=== PATIENT | male | born 1960 | race African-American/Black ===

== ENCOUNTER 2018-01-06 19:03 | Inpatient (IN) ==
[2018-01-06] MEDS ORDERED: MORPHINE 2 MG/1 ML SYRINGE IV STA (19:31)
[2018-01-06] MEDS ORDERED: MORPHINE 2 MG/1 ML SYRINGE ONE (19:36)
[2018-01-06] MEDS ORDERED: ONDANSETRON 4 MG/2 ML VIAL IV STA (19:38)
[2018-01-06] MEDS ORDERED: ONDANSETRON 4 MG/2 ML VIAL ONE (19:38)
[2018-01-06 19:50] LABS: Basophils % 0.3 % (0.0-0.8); Eosinophils # 0.1 10*3/uL (0.0-0.87); Eosinophils % 1.1 % (0.00-10.9); Hematocrit 42.5 VOL% (42.0-52.0); Hemoglobin 13.8 GM/DL (14.0-18.0); Immature Granulocytes % 0.2 %; Immature Granulocytes Absolute 0.02 #; Lymphocytes # 2.2 10*3/uL (1.4-4.0); Mean Corpuscular HGB Conc 32.5 GM/DL (32-36); Mean Corpuscular Hemoglobin 26 PG (27-34); Mean Corpuscular Volume 79.9 FL (87-102); Monocytes # 0.7 10*3/uL (0.11-0.8); Monocytes % 7.7 % (1.7-12.7); Neutrophils % 66.7 % (38.7-73.9); Platelet Count 173 T/CUMM (130-400); Red Blood Count 5.32 MC/CUMM (3.8-5.5); Red Cell Distribution Width 16.8 % (9.3-17.3)
[2018-01-06 20:13] LABS: Albumin 3.6 G/DL (3.4-5.0); Bilirubin,Total 0.5 MG/DL (0.2-1.0); Calcium 9.5 MG/DL (8.5-10.1); Osmolality,Calculated 285.8 MOS/KG (273-304); Potassium 4.1 MMOL/L (3.5-5.1); Total Protein 7.2 G/DL (6.4-8.3)
[2018-01-06] MEDS ORDERED: cloNIDine 0.1 MG TABLET PO STA (21:15)
[2018-01-06] MEDS ORDERED: cloNIDine 0.1 MG TABLET ONE (21:17)
[2018-01-06] MEDS ORDERED: ENOXAPARIN 40 MG/0.4 ML SYRINGE SUBCUT STA (21:47)
[2018-01-06] MEDS ORDERED: ENOXAPARIN 40 MG/0.4 ML SYRINGE ONE (21:59)
[2018-01-07] MEDS ORDERED: GLUCAGON 1 MG VIAL IM PRN ×2 (00:25→13:30)
[2018-01-07] MEDS ORDERED: DEXTROSE 50% 25 GM/50 ML VIAL IV PRN ×2 (00:25→13:30)
[2018-01-07] MEDS ORDERED: SODIUM CHLORIDE 0.9% 1,000 ML IV SCH (00:25)
[2018-01-07] MEDS: hydrALAZINE 20 MG/1 ML VIAL IV PRN (01:20)
[2018-01-07] MEDS: MORPHINE 2 MG/1 ML SYRINGE IV PRN ×3 (01:23→21:39)
[2018-01-07] MEDS ORDERED: ALPRAZolam 0.5 MG TABLET PO ONE (03:27)
[2018-01-07] MEDS ORDERED: metFORMIN 500 MG TABLET PO SCH (08:00)
[2018-01-07] MEDS ORDERED: diphenhydrAMINE CAP 25 MG CAPSULE PO PRN (08:18)
[2018-01-07] MEDS ORDERED: ALUMINUM/MAGNES/SIMETH MAX STR 30 ML UDCUP PO PRN (08:18)
[2018-01-07] MEDS ORDERED: MYLANTA/LIDO VISC 2:1 300 ML BOTTLE SWISH/SWAL PRN (08:18)
[2018-01-07] MEDS ORDERED: guaiFENesin 200 MG/10 ML UDCUP PO PRN (08:18)
[2018-01-07] MEDS ORDERED: ACETAMINOPHEN 325 MG TABLET PO PRN (08:18)
[2018-01-07] MEDS ORDERED: chlorproMAZINE 25 MG TABLET PO PRN (08:18)
[2018-01-07] MEDS ORDERED: chlorproMAZINE INJ 50 MG in SODIUM CHLORIDE 0.9% 100 ML IV PRN (08:18)
[2018-01-07] MEDS ORDERED: chlorproMAZINE INJ 25 MG in SODIUM CHLORIDE 0.9% 100 ML IV PRN (08:18)
[2018-01-07] MEDS ORDERED: MAGNESIUM HYDROXIDE SUSP 30 ML UDCUP PO PRN (08:18)
[2018-01-07] MEDS ORDERED: BENZTROPINE 2 MG/2 ML AMP IV PRN (08:18)
[2018-01-07] MEDS ORDERED: ALPRAZolam 0.25 MG TABLET PO PRN (08:18)
[2018-01-07] MEDS ORDERED: TEMAZEPAM 7.5 MG CAPSULE PO PRN (08:18)
[2018-01-07] MEDS ORDERED: LOPERAMIDE 2 MG CAPSULE PO PRN ×2 (08:18)
[2018-01-07] MEDS ORDERED: LACTULOSE 20 GM/30 ML UDCUP PO PRN (08:18)
[2018-01-07] MEDS ORDERED: traMADol 50 MG TABLET PO PRN (08:18)
[2018-01-07] MEDS ORDERED: MYLANTA/LIDO VISC 2:1 300 ML BOTTLE SWISH/SPIT PRN (08:18)
[2018-01-07] MEDS ORDERED: PROMETHAZINE INJ 25 MG in SODIUM CHLORIDE 0.9% 50 ML IV PRN (08:18)
[2018-01-07] MEDS: hydroCHLOROthiazide 25 MG TABLET PO SCH (08:33)
[2018-01-07] MEDS: glipiZIDE 10 MG TABLET PO SCH (08:33)
[2018-01-07] MEDS: DOCUSATE SODIUM 100 MG CAPSULE PO SCH ×2 (08:34→21:38)
[2018-01-07] MEDS: sitaGLIPtin 25 MG TABLET PO SCH ×2 (08:34→17:00)
[2018-01-07] MEDS: CETIRIZINE 10 MG TABLET PO SCH (08:34)
[2018-01-07] MEDS: amLODIPine 10 MG TABLET PO SCH (08:34)
[2018-01-07] MEDS: SIMVASTATIN 20 MG TABLET PO SCH (08:34)
[2018-01-07] MEDS: SERTRALINE 100 MG TABLET PO SCH (08:34)
[2018-01-07] MEDS: PANTOPRAZOLE 40 MG TABLET PO SCH (08:35)
[2018-01-07] MEDS: INSULIN REGULAR 100 UNIT/ML SUBCUT SCH ×4 (08:40→21:40)
[2018-01-07] MEDS: cloNIDine 0.1 MG TABLET PO SCH ×2 (08:42→21:38)
[2018-01-07] MEDS ORDERED: ENOXAPARIN 100 MG/ML SYRINGE SUBCUT SCH (09:00)
[2018-01-07] MEDS ORDERED: LISINOPRIL 20 MG TABLET PO SCH (09:00)
[2018-01-07] MEDS: ONDANSETRON 4 MG/2 ML VIAL IV PRN ×2 (12:13→21:39)
[2018-01-07] MEDS ORDERED: RIVAROXABAN 20 MG TABLET PO SCH (18:40)
[2018-01-07] MEDS ORDERED: INSULIN GLARGINE 100 UNIT/ML SUBCUT SCH (21:00)
[2018-01-08] MEDS: hydrALAZINE 20 MG/1 ML VIAL IV PRN (04:25)
[2018-01-08] MEDS: INSULIN REGULAR 100 UNIT/ML SUBCUT SCH ×2 (08:36→12:02)
[2018-01-08] MEDS: SERTRALINE 100 MG TABLET PO SCH (08:37)
[2018-01-08] MEDS: PANTOPRAZOLE 40 MG TABLET PO SCH (08:37)
[2018-01-08] MEDS: glipiZIDE 10 MG TABLET PO SCH (08:37)
[2018-01-08] MEDS: cloNIDine 0.1 MG TABLET PO SCH (08:37)
[2018-01-08] MEDS: amLODIPine 10 MG TABLET PO SCH (08:37)
[2018-01-08] MEDS: CETIRIZINE 10 MG TABLET PO SCH (08:37)
[2018-01-08] MEDS: sitaGLIPtin 25 MG TABLET PO SCH (08:37)
[2018-01-08] MEDS: hydroCHLOROthiazide 25 MG TABLET PO SCH (08:37)
[2018-01-08] MEDS: SIMVASTATIN 20 MG TABLET PO SCH (08:38)
[2018-01-08] MEDS ORDERED: LISINOPRIL 20 MG TABLET PO SCH (09:00)
[2018-01-08] MEDS: DOCUSATE SODIUM 100 MG CAPSULE PO SCH (10:03)
[2018-01-08 12:18] VITALS: BP 132/85
[2018-01-08] MEDS ORDERED: HEPARIN LOCK FLUSH 500 UNIT/5 ML SYRINGE IV PRN (12:42)
== END 2018-01-08 14:05 | disposition home or self-care (01) | DRG 554 ==
LOC: N.ED 19:03 → SUATTDRO 23:10 → N.EDINP 23:10 → N.4E 01-07 00:19
PROVIDERS: ADMIT Internal Medicine; ATTEND Internal Medicine

== ENCOUNTER 2019-05-24 14:45 | Inpatient (IN) ==
[2019-05-24] MEDS ORDERED: DEXTROSE 50% 25 GM/50 ML VIAL IV PRN (17:22)
[2019-05-24] MEDS ORDERED: GLUCAGON 1 MG VIAL IM PRN (17:22)
[2019-05-24] MEDS ORDERED: ACETAMINOPHEN 325 MG TABLET PO PRN (17:22)
[2019-05-24] MEDS ORDERED: ENOXAPARIN 30 MG/0.3 ML SYRINGE SUBCUT SCH (17:30)
[2019-05-24] MEDS ORDERED: IBUPROFEN 200 MG PO PRN (18:16)
[2019-05-24] MEDS ORDERED: FLUTICASONE 50 MCG NASAL SPRAY 16 GM BOTTLE BOTH NARES PRN (18:16)
[2019-05-24] MEDS ORDERED: CETIRIZINE 10 MG TABLET PO PRN (18:16)
[2019-05-24 18:20] LABS: Basophils % 0.2 % (0.0-0.8); Hematocrit 38.5 VOL% (42.0-52.0); Hemoglobin 12.6 GM/DL (14.0-18.0); Immature Granulocytes % 0.6 %; Immature Granulocytes Absolute 0.08 #; Lymphocytes # 1.4 10*3/uL (1.4-4.0); Lymphocytes % 10.8 % (21.2-54.2); Mean Corpuscular HGB Conc 32.7 GM/DL (32-36); Mean Corpuscular Volume 80.2 FL (87-102); Monocytes % 5.8 % (1.7-12.7); Neutrophils % 82.6 % (38.7-73.9); Platelet Count 218 T/CUMM (130-400); Red Cell Distribution Width 15.1 % (9.3-17.3)
[2019-05-24 18:50] LABS: Albumin 2.9 G/DL (3.4-5.0); Bilirubin,Total 0.7 MG/DL (0.2-1.0); Calcium 9.5 MG/DL (8.5-10.1); Osmolality,Calculated 304.8 MOS/KG (273-304); Total Protein 6.8 G/DL (6.4-8.3)
[2019-05-24] MEDS ORDERED: INSULIN GLARGINE 100 UNIT/ML SUBCUT SCH (21:00)
[2019-05-24] MEDS: GABAPENTIN 600 MG TABLET PO SCH (21:29)
[2019-05-24] MEDS: DEXAMETHASONE 4 MG TABLET PO SCH (21:29)
[2019-05-24] MEDS: INSULIN REGULAR 100 UNIT/ML SUBCUT SCH (21:29)
[2019-05-24] MEDS: SIMVASTATIN 20 MG TABLET PO SCH (21:29)
[2019-05-25] MEDS ORDERED: CYCLOBENZAPRINE 10 MG TABLET PO ONE (01:16)
[2019-05-25 05:18] LABS: Basophils % 0.1 % (0.0-0.8); Hematocrit 38.8 VOL% (42.0-52.0); Hemoglobin 12.2 GM/DL (14.0-18.0); Immature Granulocytes % 0.7 %; Immature Granulocytes Absolute 0.08 #; Lymphocytes # 1.2 10*3/uL (1.4-4.0); Lymphocytes % 9.6 % (21.2-54.2); Mean Corpuscular HGB Conc 31.4 GM/DL (32-36); Mean Corpuscular Volume 80.7 FL (87-102); Mean Platelet Volume 12.3 FL (9.6-12.0); Monocytes % 4.7 % (1.7-12.7); Neutrophils % 84.9 % (38.7-73.9); Platelet Count 193 T/CUMM (130-400); Red Blood Count 4.81 MC/CUMM (3.8-5.5); White Blood Count 12.2 T/CUMM (4-12)
[2019-05-25 05:55] LABS: Calcium 9.5 MG/DL (8.5-10.1); Osmolality,Calculated 297.8 MOS/KG (273-304)
[2019-05-25] MEDS ORDERED: INSULIN GLARGINE 100 UNIT/ML SUBCUT ONE (08:01)
[2019-05-25] MEDS ORDERED: INSULIN GLARGINE 100 UNIT/ML SUBCUT SCH (08:01)
[2019-05-25] MEDS: LISINOPRIL 20 MG TABLET PO SCH (08:25)
[2019-05-25] MEDS: INSULIN REGULAR 100 UNIT/ML SUBCUT SCH ×4 (08:25→20:24)
[2019-05-25] MEDS: CHLORTHALIDONE 25 MG TABLET PO SCH (08:26)
[2019-05-25] MEDS: PANTOPRAZOLE 40 MG TABLET PO SCH (08:26)
[2019-05-25] MEDS: hydrALAZINE 20 MG/1 ML VIAL IV PRN (08:26)
[2019-05-25] MEDS: ASPIRIN EC 81 MG TABLET PO SCH (08:26)
[2019-05-25] MEDS: GABAPENTIN 600 MG TABLET PO SCH ×2 (08:26→20:00)
[2019-05-25] MEDS: DEXAMETHASONE 4 MG TABLET PO SCH ×2 (08:26→20:00)
[2019-05-25] MEDS: carBAMazepine 200 MG TABLET PO SCH ×2 (08:55→20:00)
[2019-05-25] MEDS ORDERED: CYCLOBENZAPRINE 10 MG TABLET PO PRN (08:58)
[2019-05-25] MEDS ORDERED: PANTOPRAZOLE 40 MG TABLET PO SCH (09:00)
[2019-05-25] MEDS: RIVAROXABAN 20 MG TABLET PO SCH (16:36)
[2019-05-25] MEDS: SIMVASTATIN 20 MG TABLET PO SCH (20:00)
[2019-05-26 04:32] LABS: Basophils % 0.2 % (0.0-0.8); Eosinophils % 0.1 % (0.00-10.9); Hematocrit 38.7 VOL% (42.0-52.0); Hemoglobin 12.1 GM/DL (14.0-18.0); Immature Granulocytes % 0.9 %; Immature Granulocytes Absolute 0.12 #; Lymphocytes # 1.3 10*3/uL (1.4-4.0); Lymphocytes % 9.6 % (21.2-54.2); Mean Corpuscular HGB Conc 31.3 GM/DL (32-36); Mean Corpuscular Volume 81.6 FL (87-102); Mean Platelet Volume 13.1 FL (9.6-12.0); Monocytes % 6.1 % (1.7-12.7); Neutrophils % 83.1 % (38.7-73.9); Platelet Count 198 T/CUMM (130-400); Red Blood Count 4.74 MC/CUMM (3.8-5.5); Red Cell Distribution Width 15.3 % (9.3-17.3); White Blood Count 13.3 T/CUMM (4-12)
[2019-05-26 04:48] LABS: Calcium 9.4 MG/DL (8.5-10.1); Osmolality,Calculated 305.4 MOS/KG (273-304)
[2019-05-26] MEDS: SODIUM CHLORIDE 0.9% 1,000 ML IV SCH ×2 (10:00→18:02)
[2019-05-26] MEDS: ASPIRIN EC 81 MG TABLET PO SCH (10:02)
[2019-05-26] MEDS: LISINOPRIL 20 MG TABLET PO SCH (10:02)
[2019-05-26] MEDS: INSULIN REGULAR 100 UNIT/ML SUBCUT SCH ×5 (10:02→20:44)
[2019-05-26] MEDS: carBAMazepine 200 MG TABLET PO SCH ×2 (10:03→20:44)
[2019-05-26] MEDS: PANTOPRAZOLE 40 MG TABLET PO SCH (10:03)
[2019-05-26] MEDS: CHLORTHALIDONE 25 MG TABLET PO SCH (10:03)
[2019-05-26] MEDS: DEXAMETHASONE 4 MG TABLET PO SCH ×2 (10:03→20:22)
[2019-05-26] MEDS: GABAPENTIN 600 MG TABLET PO SCH ×2 (10:06→20:22)
[2019-05-26] MEDS: RIVAROXABAN 20 MG TABLET PO SCH (18:04)
[2019-05-26] MEDS: SIMVASTATIN 20 MG TABLET PO SCH (20:22)
[2019-05-27 03:36] LABS: Basophils % 0.1 % (0.0-0.8); Eosinophils # 0.1 10*3/uL (0.0-0.87); Eosinophils % 0.4 % (0.00-10.9); Hemoglobin 11.3 GM/DL (14.0-18.0); Immature Granulocytes % 1.1 %; Immature Granulocytes Absolute 0.15 #; Lymphocytes # 1.4 10*3/uL (1.4-4.0); Lymphocytes % 10.6 % (21.2-54.2); Mean Corpuscular HGB Conc 31.4 GM/DL (32-36); Mean Corpuscular Volume 82.2 FL (87-102); Mean Platelet Volume 13.4 FL (9.6-12.0); Monocytes % 7.9 % (1.7-12.7); Neutrophils % 79.9 % (38.7-73.9); Platelet Count 172 T/CUMM (130-400); Red Blood Count 4.38 MC/CUMM (3.8-5.5); Red Cell Distribution Width 15.3 % (9.3-17.3); White Blood Count 13.4 T/CUMM (4-12)
[2019-05-27] MEDS: SODIUM CHLORIDE 0.9% 1,000 ML IV SCH ×3 (03:44→22:00)
[2019-05-27 04:03] LABS: Calcium 8.3 MG/DL (8.5-10.1); Osmolality,Calculated 300.5 MOS/KG (273-304)
[2019-05-27] MEDS ORDERED: INSULIN GLARGINE 100 UNIT/ML SUBCUT SCH ×2 (08:01→21:00)
[2019-05-27] MEDS: INSULIN REGULAR 100 UNIT/ML SUBCUT SCH ×5 (09:58→22:38)
[2019-05-27] MEDS: LISINOPRIL 20 MG TABLET PO SCH (09:59)
[2019-05-27] MEDS: carBAMazepine 200 MG TABLET PO SCH ×2 (09:59→21:40)
[2019-05-27] MEDS: CHLORTHALIDONE 25 MG TABLET PO SCH (09:59)
[2019-05-27] MEDS: GABAPENTIN 600 MG TABLET PO SCH ×2 (09:59→21:40)
[2019-05-27] MEDS: ASPIRIN EC 81 MG TABLET PO SCH (10:00)
[2019-05-27] MEDS: DEXAMETHASONE 4 MG TABLET PO SCH ×2 (10:00→21:40)
[2019-05-27] MEDS: PANTOPRAZOLE 40 MG TABLET PO SCH (10:00)
[2019-05-27] MEDS ORDERED: INSULIN GLARGINE 100 UNIT/ML SUBCUT ONE (15:30)
[2019-05-27] MEDS: RIVAROXABAN 20 MG TABLET PO SCH (17:29)
[2019-05-27] MEDS ORDERED: SODIUM CHLORIDE 0.9% 500 ML IV ONE (21:11)
[2019-05-27] MEDS ORDERED: INSULIN REGULAR 100 UNIT/ML IV ONE (21:11)
[2019-05-27] MEDS: hydrALAZINE 25 MG TABLET PO SCH (21:40)
[2019-05-27] MEDS: SIMVASTATIN 20 MG TABLET PO SCH (21:40)
[2019-05-28] MEDS: INSULIN REGULAR 100 UNIT/ML SUBCUT SCH ×7 (00:26→23:44)
[2019-05-28] MEDS: SODIUM CHLORIDE 0.9% 1,000 ML IV SCH ×3 (01:15→20:55)
[2019-05-28 05:56] LABS: Basophils % 0.2 % (0.0-0.8); Eosinophils % 0.3 % (0.00-10.9); Hematocrit 38.1 VOL% (42.0-52.0); Hemoglobin 11.9 GM/DL (14.0-18.0); Immature Granulocytes % 1.2 %; Immature Granulocytes Absolute 0.15 #; Lymphocytes # 1.5 10*3/uL (1.4-4.0); Lymphocytes % 12.2 % (21.2-54.2); Mean Corpuscular HGB Conc 31.2 GM/DL (32-36); Mean Corpuscular Volume 82.3 FL (87-102); Mean Platelet Volume 12.9 FL (9.6-12.0); Monocytes % 6.4 % (1.7-12.7); Neutrophils % 79.7 % (38.7-73.9); Platelet Count 164 T/CUMM (130-400); Red Blood Count 4.63 MC/CUMM (3.8-5.5); Red Cell Distribution Width 15.6 % (9.3-17.3); White Blood Count 12.5 T/CUMM (4-12)
[2019-05-28 06:15] LABS: Calcium 8.8 MG/DL (8.5-10.1); Osmolality,Calculated 291.4 MOS/KG (273-304)
[2019-05-28] MEDS: INSULIN GLARGINE 100 UNIT/ML SUBCUT SCH (08:59)
[2019-05-28] MEDS: GABAPENTIN 600 MG TABLET PO SCH ×2 (09:00→20:54)
[2019-05-28] MEDS: LISINOPRIL 20 MG TABLET PO SCH (09:00)
[2019-05-28] MEDS: CHLORTHALIDONE 25 MG TABLET PO SCH (09:00)
[2019-05-28] MEDS: ASPIRIN EC 81 MG TABLET PO SCH (09:01)
[2019-05-28] MEDS: DEXAMETHASONE 4 MG TABLET PO SCH ×2 (09:01→20:54)
[2019-05-28] MEDS: carBAMazepine 200 MG TABLET PO SCH ×2 (09:01→20:54)
[2019-05-28] MEDS: hydrALAZINE 25 MG TABLET PO SCH (09:01)
[2019-05-28] MEDS: PANTOPRAZOLE 40 MG TABLET PO SCH (09:01)
[2019-05-28] MEDS: ONDANSETRON 4 MG/2 ML VIAL IV PRN (11:40)
[2019-05-28] MEDS: hydrALAZINE 20 MG/1 ML VIAL IV PRN (12:08)
[2019-05-28] MEDS: MECLIZINE 25 MG TABLET PO PRN ×2 (12:54→20:54)
[2019-05-28] MEDS: INSULIN LISPRO 100 UNIT/ML SUBCUT SCH ×2 (16:18→20:55)
[2019-05-28] MEDS: RIVAROXABAN 20 MG TABLET PO SCH (17:04)
[2019-05-28] MEDS: SIMVASTATIN 20 MG TABLET PO SCH (20:54)
[2019-05-29] MEDS: INSULIN REGULAR 100 UNIT/ML SUBCUT SCH ×5 (04:34→22:11)
[2019-05-29] MEDS: SODIUM CHLORIDE 0.9% 1,000 ML IV SCH ×2 (05:05→20:20)
[2019-05-29] MEDS: INSULIN LISPRO 100 UNIT/ML SUBCUT SCH ×4 (07:52→22:11)
[2019-05-29] MEDS: hydrALAZINE 20 MG/1 ML VIAL IV PRN ×2 (07:54→16:11)
[2019-05-29] MEDS: INSULIN GLARGINE 100 UNIT/ML SUBCUT SCH (08:04)
[2019-05-29] MEDS: carBAMazepine 200 MG TABLET PO SCH ×2 (08:26→22:10)
[2019-05-29] MEDS: LISINOPRIL 20 MG TABLET PO SCH (08:26)
[2019-05-29] MEDS: PANTOPRAZOLE 40 MG TABLET PO SCH (08:27)
[2019-05-29] MEDS: GABAPENTIN 600 MG TABLET PO SCH ×2 (08:27→22:10)
[2019-05-29] MEDS: CHLORTHALIDONE 25 MG TABLET PO SCH (08:27)
[2019-05-29] MEDS: ASPIRIN EC 81 MG TABLET PO SCH (08:27)
[2019-05-29] MEDS: DEXAMETHASONE 4 MG TABLET PO SCH ×2 (08:27→22:10)
[2019-05-29] MEDS: MECLIZINE 25 MG TABLET PO PRN (08:30)
[2019-05-29] MEDS: ONDANSETRON 4 MG/2 ML VIAL IV PRN (13:24)
[2019-05-29] MEDS: RIVAROXABAN 20 MG TABLET PO SCH (16:12)
[2019-05-29] MEDS: SIMVASTATIN 20 MG TABLET PO SCH (22:10)
[2019-05-30] MEDS: INSULIN REGULAR 100 UNIT/ML SUBCUT SCH ×5 (01:27→17:02)
[2019-05-30] MEDS: SODIUM CHLORIDE 0.9% 1,000 ML IV SCH ×3 (02:33→13:39)
[2019-05-30 04:56] LABS: Basophils % 0.4 % (0.0-0.8); Eosinophils # 0.2 10*3/uL (0.0-0.87); Eosinophils % 1.9 % (0.00-10.9); Hematocrit 39.2 VOL% (42.0-52.0); Hemoglobin 12.2 GM/DL (14.0-18.0); Immature Granulocytes % 0.7 %; Immature Granulocytes Absolute 0.06 #; Lymphocytes # 1.3 10*3/uL (1.4-4.0); Lymphocytes % 16.3 % (21.2-54.2); Mean Corpuscular HGB Conc 31.1 GM/DL (32-36); Mean Corpuscular Volume 82.5 FL (87-102); Mean Platelet Volume 12.7 FL (9.6-12.0); Monocytes % 8.7 % (1.7-12.7); Platelet Count 162 T/CUMM (130-400); Red Blood Count 4.75 MC/CUMM (3.8-5.5); White Blood Count 8.1 T/CUMM (4-12)
[2019-05-30 05:16] LABS: Calcium 8.7 MG/DL (8.5-10.1); Osmolality,Calculated 286.4 MOS/KG (273-304)
[2019-05-30] MEDS: INSULIN GLARGINE 100 UNIT/ML SUBCUT SCH (08:41)
[2019-05-30] MEDS: PANTOPRAZOLE 40 MG TABLET PO SCH (08:41)
[2019-05-30] MEDS: INSULIN LISPRO 100 UNIT/ML SUBCUT SCH ×3 (08:41→17:01)
[2019-05-30] MEDS: DEXAMETHASONE 4 MG TABLET PO SCH (08:42)
[2019-05-30] MEDS: hydrALAZINE 20 MG/1 ML VIAL IV PRN (08:42)
[2019-05-30] MEDS: LISINOPRIL 20 MG TABLET PO SCH (08:42)
[2019-05-30] MEDS: ASPIRIN EC 81 MG TABLET PO SCH (08:42)
[2019-05-30] MEDS: CHLORTHALIDONE 25 MG TABLET PO SCH (08:42)
[2019-05-30] MEDS: MECLIZINE 25 MG TABLET PO PRN (08:42)
[2019-05-30] MEDS: GABAPENTIN 600 MG TABLET PO SCH (08:49)
[2019-05-30] MEDS: carBAMazepine 200 MG TABLET PO SCH (08:49)
[2019-05-30] MEDS: ONDANSETRON 4 MG/2 ML VIAL IV PRN (13:35)
[2019-05-30 16:57] VITALS: BP 152/97
[2019-05-30] MEDS: RIVAROXABAN 20 MG TABLET PO SCH (17:03)
== END 2019-05-30 17:55 | disposition home health service (06) | DRG 100 ==
LOC: N.4E → N.ED 14:45 → N.EDINP 14:45 → N.5E 19:33 → N.4E 20:22 → SUATTDRO 05-25 12:44 → N.ICU 05-27 20:45
PROVIDERS: ADMIT Internal Medicine Cardiovascular Disease; ATTEND Internal Medicine

== ENCOUNTER 2019-09-09 22:17 | Observation (INO) ==
[2019-09-09] MEDS ORDERED: SODIUM CHLORIDE 0.9% 500 ML IV STA (23:08)
[2019-09-09] MEDS ORDERED: ONDANSETRON 4 MG/2 ML VIAL IV STA (23:08)
[2019-09-09] MEDS ORDERED: ORPHENADRINE 60 MG/2 ML VIAL IV STA (23:09)
[2019-09-09 23:42] LABS: Basophils % 0.1 % (0.0-0.8); Hematocrit 32.4 VOL% (42.0-52.0); Hemoglobin 9.9 GM/DL (14.0-18.0); Immature Granulocytes % 1.3 %; Immature Granulocytes Absolute 0.14 #; Lymphocytes # 0.7 10*3/uL (1.4-4.0); Mean Corpuscular HGB Conc 30.6 GM/DL (32-36); Mean Corpuscular Volume 87.3 FL (87-102); Mean Platelet Volume 12.6 FL (9.6-12.0); Monocytes % 5.5 % (1.7-12.7); Neutrophils % 86.1 % (38.7-73.9); Platelet Count 200 T/CUMM (130-400); Red Blood Count 3.71 MC/CUMM (3.8-5.5); Red Cell Distribution Width 14.6 % (9.3-17.3); White Blood Count 10.5 T/CUMM (4-12)
[2019-09-10 00:39] LABS: Alanine Aminotransferase 20 U/L (16-61); Albumin 2.9 G/DL (3.4-5.0); Alkaline Phosphatase 171 U/L (45-117); Aspartate Amino Transferase 12 U/L (0-37); Bilirubin,Total < 0.39 MG/DL (0.2-1.0); Blood Urea Nitrogen 33 MG/DL (7-18); Calcium 8.9 MG/DL (8.5-10.1); Estimated Glom Filtration Rate 48 ML/MIN; Osmolality,Calculated 311.8 MOS/KG (273-304); Total Protein 6.5 G/DL (6.4-8.3)
[2019-09-10 00:41] LABS: Glucose 906 MG/DL (74-106)
[2019-09-10] MEDS ORDERED: SODIUM CHLORIDE 0.9% 2,000 ML IV STA (00:41)
[2019-09-10] MEDS ORDERED: INSULIN REGULAR 100 UNIT/ML IV ONE (00:41)
[2019-09-10] MEDS ORDERED: INSULIN REGULAR 100 UNIT/ML SUBCUT STA (01:51)
[2019-09-10 02:36] LABS: ABG Base Excess -3.1 MMOL/L (-2.5-2.5); ABG HCO3 21.8 MMOL/L (20-26); ABG Oxygen Saturation 98.6 % (95-100); ABG PCO2 35.8 MM HG (35-48); ABG PH 7.385 (7.35-7.45); ABG TCO2 19.7 MMOL/L (23-27); Allen Test Positive; Pt O2 Delivery Device Room Air
[2019-09-10] MEDS ORDERED: ACETAMINOPHEN 325 MG TABLET PO PRN (03:43)
[2019-09-10] MEDS ORDERED: CETIRIZINE 10 MG TABLET PO PRN (03:43)
[2019-09-10] MEDS ORDERED: GLUCAGON 1 MG VIAL IM PRN (03:43)
[2019-09-10] MEDS ORDERED: LOPERAMIDE 2 MG CAPSULE PO PRN (03:43)
[2019-09-10] MEDS ORDERED: DEXTROSE 50% 25 GM/50 ML VIAL IV PRN (03:43)
[2019-09-10] MEDS ORDERED: ONDANSETRON 4 MG/2 ML VIAL IV PRN (03:43)
[2019-09-10] MEDS ORDERED: INSULIN GLARGINE 100 UNIT/ML SUBCUT ONE (04:00)
[2019-09-10 04:10] LABS: PT Patient Result 10.7 SECS (9.6-12.2); Partial Thromboplastin Time 23.8 SECS (20.8-36.0)
[2019-09-10] MEDS: INSULIN REGULAR 100 UNIT/ML SUBCUT SCH ×7 (04:26→21:00)
[2019-09-10] MEDS: SODIUM CHLORIDE 0.9% 1,000 ML IV SCH ×3 (04:32→21:01)
[2019-09-10 08:05] LABS: Calcium 8.3 MG/DL (8.5-10.1); Osmolality,Calculated 290.8 MOS/KG (273-304)
[2019-09-10] MEDS: DEXAMETHASONE 4 MG TABLET PO SCH ×2 (09:30→20:59)
[2019-09-10] MEDS: FAMOTIDINE 20 MG TABLET PO SCH ×2 (09:30→21:00)
[2019-09-10] MEDS: SERTRALINE 100 MG TABLET PO SCH (09:30)
[2019-09-10] MEDS: ASPIRIN EC 81 MG TABLET PO SCH (09:30)
[2019-09-10] MEDS: LISINOPRIL 20 MG TABLET PO SCH (09:30)
[2019-09-10] MEDS: CAPECITABINE 2000 MG PO SCH ×2 (09:31→20:59)
[2019-09-10] MEDS: INSULIN LISPRO 100 UNIT/ML SUBCUT SCH (09:35)
[2019-09-10] MEDS: [UNRECOGNIZED DRUG - OTHER] TOP SCH ×2 (09:35→21:02)
[2019-09-10] MEDS ORDERED: RIVAROXABAN 20 MG TABLET PO SCH (17:00)
[2019-09-10] MEDS ORDERED: INSULIN GLARGINE 100 UNIT/ML SUBCUT SCH (21:00)
[2019-09-11] MEDS: SODIUM CHLORIDE 0.9% 1,000 ML IV SCH ×2 (04:40→12:35)
[2019-09-11] MEDS: INSULIN REGULAR 100 UNIT/ML SUBCUT SCH ×2 (07:58→12:41)
[2019-09-11] MEDS ORDERED: MECLIZINE 25 MG TABLET PO PRN (09:22)
[2019-09-11] MEDS ORDERED: INSULIN LISPRO 100 UNIT/ML SUBCUT PRN (09:22)
[2019-09-11] MEDS ORDERED: CHLORTHALIDONE 25 MG TABLET PO SCH (09:30)
[2019-09-11] MEDS: LISINOPRIL 20 MG TABLET PO SCH (09:41)
[2019-09-11] MEDS: DEXAMETHASONE 4 MG TABLET PO SCH (09:42)
[2019-09-11] MEDS: FAMOTIDINE 20 MG TABLET PO SCH (09:42)
[2019-09-11] MEDS: SERTRALINE 100 MG TABLET PO SCH (09:42)
[2019-09-11] MEDS: INSULIN LISPRO 100 UNIT/ML SUBCUT SCH (09:42)
[2019-09-11] MEDS: ASPIRIN EC 81 MG TABLET PO SCH (09:42)
[2019-09-11] MEDS: CAPECITABINE 2000 MG PO SCH (09:43)
[2019-09-11] MEDS: [UNRECOGNIZED DRUG - OTHER] TOP SCH (09:43)
[2019-09-11 10:46] LABS: Calcium 8.6 MG/DL (8.5-10.1); Osmolality,Calculated 288.8 MOS/KG (273-304)
[2019-09-11 11:41] VITALS: BP 168/90
[2019-09-11] MEDS ORDERED: MAGNESIUM OXIDE 400 MG TABLET PO SCH (12:30)
[2019-09-11 14:35] LABS: Apearance,Urine CLEAR (Clear); Bacteria,Urine Occasional /HPF (Few); Bilirubin,Urine Negative (Negative); Blood, Urine Small mg/dL (Negative); Glucose,Urine (UA) Negative (Negative); Ketones,Urine Negative (Negative); Mucus,Urine Occasional /LPF (Occasional); Nitrite,Urine Negative (Negative); Protein,Urine 30 MG/DL; RBC,Urine 4 /HPF (0-4); Urine Color Straw (Yellow); Urine Specific Gravity 1.014 (1.001-1.035); Urine Urobilinogen < 2.0 EU/DL (0.2-1.0); WBC,Urine 2 /HPF (0-6)
[2019-09-12] MEDS ORDERED: MULTIVITAMIN (CENTRUM) TABLET PO SCH (09:00)
== END 2019-09-11 16:00 | disposition home health service (06) ==
LOC: N.EDINP 22:17 → N.ED 22:17 → N.4E 09-10 02:45
PROVIDERS: ADMIT Family Medicine; ATTEND Family Medicine

== ENCOUNTER 2019-09-17 13:58 | Inpatient (IN) ==
[2019-09-17] MEDS ORDERED: SODIUM CHLORIDE 0.9% 500 ML IV STA (14:24)
[2019-09-17] MEDS ORDERED: PROMETHAZINE INJ 25 MG in SODIUM CHLORIDE 0.9% 50 ML IV STA (14:25)
[2019-09-17] MEDS ORDERED: PROMETHAZINE 25 MG/1 ML VIAL ONE (14:28)
[2019-09-17 14:36] LABS: Basophils % 0.4 % (0.0-0.8); Eosinophils # 0.2 10*3/uL (0.0-0.87); Eosinophils % 2.3 % (0.00-10.9); Hematocrit 33.2 VOL% (42.0-52.0); Hemoglobin 10.6 GM/DL (14.0-18.0); Immature Granulocytes % 0.6 %; Immature Granulocytes Absolute 0.06 #; Lymphocytes # 1.4 10*3/uL (1.4-4.0); Lymphocytes % 14.5 % (21.2-54.2); Mean Corpuscular HGB Conc 31.9 GM/DL (32-36); Mean Corpuscular Volume 83.4 FL (87-102); Mean Platelet Volume 11.5 FL (9.6-12.0); Monocytes % 9.5 % (1.7-12.7); Neutrophils % 72.7 % (38.7-73.9); Platelet Count 251 T/CUMM (130-400); Red Blood Count 3.98 MC/CUMM (3.8-5.5); Red Cell Distribution Width 14.2 % (9.3-17.3); White Blood Count 9.8 T/CUMM (4-12)
[2019-09-17 14:54] LABS: Albumin 2.6 G/DL (3.4-5.0); Bilirubin,Total 0.5 MG/DL (0.2-1.0); Calcium 8.9 MG/DL (8.5-10.1); Osmolality,Calculated 282.5 MOS/KG (273-304); Total Protein 6.5 G/DL (6.4-8.3)
[2019-09-17] MEDS ORDERED: MAGNESIUM SULF RIDER 2 GM in PREMIX 1 EACH IV STA (17:13)
[2019-09-17 17:49] LABS: Apearance,Urine CLEAR (Clear); Bilirubin,Urine Negative (Negative); Blood, Urine Moderate mg/dL (Negative); Glucose,Urine (UA) 150 mg/dL (Negative); Ketones,Urine 80 mg/dL (Negative); Mucus,Urine Occasional /LPF (Occasional); Nitrite,Urine Negative (Negative); Protein,Urine 100 MG/DL; RBC,Urine 4 /HPF (0-4); Squamous Epithelial Cell,Urine Occasional /HPF (0-10); Urine Color Yellow (Yellow); Urine Specific Gravity 1.012 (1.001-1.035); Urine Urobilinogen < 2.0 EU/DL (0.2-1.0); WBC,Urine 6 /HPF (0-6)
[2019-09-17] MEDS ORDERED: hydrALAZINE 20 MG/1 ML VIAL IV STA (19:14)
[2019-09-17] MEDS ORDERED: ACETAMINOPHEN 325 MG TABLET PO PRN (19:18)
[2019-09-17] MEDS ORDERED: ONDANSETRON 4 MG/2 ML VIAL IV PRN (19:18)
[2019-09-17] MEDS ORDERED: MORPHINE 4 MG/1 ML VIAL IV PRN (19:18)
[2019-09-17] MEDS ORDERED: LOPERAMIDE 2 MG CAPSULE PO PRN (19:21)
[2019-09-17] MEDS ORDERED: MECLIZINE 25 MG TABLET PO PRN (19:21)
[2019-09-17] MEDS ORDERED: CETIRIZINE 10 MG TABLET PO PRN (19:21)
[2019-09-17] MEDS ORDERED: POTASSIUM CHLORIDE 20 MEQ/15 ML UDCUP PO ONE (19:22)
[2019-09-17] MEDS ORDERED: DEXTROSE 50% 25 GM/50 ML VIAL IV PRN (19:26)
[2019-09-17] MEDS ORDERED: GLUCAGON 1 MG VIAL IM PRN (19:26)
[2019-09-17] MEDS: SODIUM CHLORIDE 0.9% 1,000 ML IV SCH (20:05)
[2019-09-17] MEDS: RIVAROXABAN 20 MG TABLET PO SCH (22:16)
[2019-09-17] MEDS: MAGNESIUM OXIDE 400 MG TABLET PO SCH (22:16)
[2019-09-17] MEDS: FAMOTIDINE 20 MG TABLET PO SCH (22:16)
[2019-09-17] MEDS: DEXAMETHASONE 4 MG TABLET PO SCH (22:16)
[2019-09-17] MEDS: MIRTAZAPINE 15 MG TABLET PO SCH (22:16)
[2019-09-17] MEDS: hydrALAZINE 20 MG/1 ML VIAL IV PRN (22:48)
[2019-09-18] MEDS: INSULIN REGULAR 100 UNIT/ML SUBCUT SCH ×5 (00:47→23:45)
[2019-09-18] MEDS: hydrALAZINE 20 MG/1 ML VIAL IV PRN (04:13)
[2019-09-18 04:42] LABS: Basophils % 0.4 % (0.0-0.8); Eosinophils % 0.3 % (0.00-10.9); Hematocrit 33.4 VOL% (42.0-52.0); Hemoglobin 10.9 GM/DL (14.0-18.0); Immature Granulocytes % 0.7 %; Immature Granulocytes Absolute 0.08 #; Lymphocytes # 0.6 10*3/uL (1.4-4.0); Lymphocytes % 5.9 % (21.2-54.2); Mean Corpuscular HGB Conc 32.6 GM/DL (32-36); Mean Corpuscular Volume 82.3 FL (87-102); Mean Platelet Volume 11.8 FL (9.6-12.0); Monocytes % 3.8 % (1.7-12.7); Neutrophils % 88.9 % (38.7-73.9); Platelet Count 239 T/CUMM (130-400); Red Blood Count 4.06 MC/CUMM (3.8-5.5); Red Cell Distribution Width 14.4 % (9.3-17.3); White Blood Count 10.9 T/CUMM (4-12)
[2019-09-18 05:14] LABS: Albumin 2.5 G/DL (3.4-5.0); Bilirubin,Total 0.9 MG/DL (0.2-1.0); Calcium 8.5 MG/DL (8.5-10.1); Osmolality,Calculated 283.7 MOS/KG (273-304); Risk Ratio 4.31; Total Protein 6.1 G/DL (6.4-8.3); VLDL CHOLESTEROL 16.6 MG/DL
[2019-09-18] MEDS ORDERED: PANTOPRAZOLE 40 MG TABLET PO SCH (09:00)
[2019-09-18] MEDS: LISINOPRIL 20 MG TABLET PO SCH (09:53)
[2019-09-18] MEDS: ASPIRIN EC 81 MG TABLET PO SCH (09:53)
[2019-09-18] MEDS: FAMOTIDINE 20 MG TABLET PO SCH ×2 (09:53→21:09)
[2019-09-18] MEDS: SERTRALINE 100 MG TABLET PO SCH (09:53)
[2019-09-18] MEDS: MULTIVITAMIN (CENTRUM) TABLET PO SCH (09:53)
[2019-09-18] MEDS: DEXAMETHASONE 4 MG TABLET PO SCH ×2 (09:53→21:09)
[2019-09-18] MEDS: CHLORTHALIDONE 25 MG TABLET PO SCH (09:54)
[2019-09-18] MEDS: MAGNESIUM OXIDE 400 MG TABLET PO SCH ×2 (09:54→21:09)
[2019-09-18] MEDS: SODIUM CHLORIDE 0.9% 1,000 ML IV SCH ×2 (09:58→23:33)
[2019-09-18] MEDS: RIVAROXABAN 20 MG TABLET PO SCH (18:48)
[2019-09-18] MEDS ORDERED: CAPECITABINE 2000 MG PO SCH (21:00)
[2019-09-18] MEDS: MIRTAZAPINE 15 MG TABLET PO SCH (21:09)
[2019-09-19 05:04] LABS: Basophils % 0.1 % (0.0-0.8); Hematocrit 31.3 VOL% (42.0-52.0); Hemoglobin 10.2 GM/DL (14.0-18.0); Immature Granulocytes % 0.7 %; Immature Granulocytes Absolute 0.07 #; Lymphocytes # 0.8 10*3/uL (1.4-4.0); Lymphocytes % 7.2 % (21.2-54.2); Mean Corpuscular HGB Conc 32.6 GM/DL (32-36); Mean Corpuscular Volume 82.2 FL (87-102); Mean Platelet Volume 11.5 FL (9.6-12.0); Monocytes % 4.7 % (1.7-12.7); Neutrophils % 87.3 % (38.7-73.9); Platelet Count 230 T/CUMM (130-400); Red Blood Count 3.81 MC/CUMM (3.8-5.5); Red Cell Distribution Width 14.1 % (9.3-17.3); White Blood Count 10.7 T/CUMM (4-12)
[2019-09-19 05:24] LABS: Albumin 2.3 G/DL (3.4-5.0); Bilirubin,Total 0.4 MG/DL (0.2-1.0); Calcium 8.7 MG/DL (8.5-10.1); Osmolality,Calculated 291.1 MOS/KG (273-304); Total Protein 5.9 G/DL (6.4-8.3)
[2019-09-19] MEDS: INSULIN REGULAR 100 UNIT/ML SUBCUT SCH ×3 (06:15→18:46)
[2019-09-19] MEDS: DEXAMETHASONE 4 MG TABLET PO SCH (09:11)
[2019-09-19] MEDS: CHLORTHALIDONE 25 MG TABLET PO SCH (09:11)
[2019-09-19] MEDS: SERTRALINE 100 MG TABLET PO SCH (09:11)
[2019-09-19] MEDS: MAGNESIUM OXIDE 400 MG TABLET PO SCH ×2 (09:11→21:21)
[2019-09-19] MEDS: MULTIVITAMIN (CENTRUM) TABLET PO SCH (09:11)
[2019-09-19] MEDS: ASPIRIN EC 81 MG TABLET PO SCH (09:11)
[2019-09-19] MEDS: FAMOTIDINE 20 MG TABLET PO SCH ×2 (09:11→21:22)
[2019-09-19] MEDS: LISINOPRIL 20 MG TABLET PO SCH (09:11)
[2019-09-19] MEDS: SODIUM CHLORIDE 0.9% 1,000 ML IV SCH (12:19)
[2019-09-19] MEDS: RIVAROXABAN 20 MG TABLET PO SCH (17:01)
[2019-09-19] MEDS: MIRTAZAPINE 15 MG TABLET PO SCH (21:21)
[2019-09-20] MEDS: INSULIN REGULAR 100 UNIT/ML SUBCUT SCH ×3 (00:33→11:50)
[2019-09-20] MEDS: SODIUM CHLORIDE 0.9% 1,000 ML IV SCH (06:26)
[2019-09-20 07:08] LABS: Basophils % 0.2 % (0.0-0.8); Eosinophils # 0.1 10*3/uL (0.0-0.87); Eosinophils % 1.3 % (0.00-10.9); Hematocrit 30.9 VOL% (42.0-52.0); Immature Granulocytes % 0.6 %; Immature Granulocytes Absolute 0.07 #; Lymphocytes # 1.6 10*3/uL (1.4-4.0); Lymphocytes % 14.4 % (21.2-54.2); Mean Corpuscular HGB Conc 32.4 GM/DL (32-36); Mean Corpuscular Volume 82.8 FL (87-102); Mean Platelet Volume 11.9 FL (9.6-12.0); Neutrophils % 74.5 % (38.7-73.9); Platelet Count 231 T/CUMM (130-400); Red Blood Count 3.73 MC/CUMM (3.8-5.5); Red Cell Distribution Width 14.4 % (9.3-17.3); White Blood Count 10.9 T/CUMM (4-12)
[2019-09-20 07:31] LABS: Albumin 2.3 G/DL (3.4-5.0); Bilirubin,Total 0.6 MG/DL (0.2-1.0); Calcium 8.8 MG/DL (8.5-10.1); Osmolality,Calculated 290.7 MOS/KG (273-304); Total Protein 5.5 G/DL (6.4-8.3)
[2019-09-20] MEDS ORDERED: POTASSIUM CHLORIDE 20 MEQ TABLET PO ONE (08:59)
[2019-09-20] MEDS: ASPIRIN EC 81 MG TABLET PO SCH (09:56)
[2019-09-20] MEDS: MULTIVITAMIN (CENTRUM) TABLET PO SCH (09:56)
[2019-09-20] MEDS: CHLORTHALIDONE 25 MG TABLET PO SCH (09:57)
[2019-09-20] MEDS: FAMOTIDINE 20 MG TABLET PO SCH (09:57)
[2019-09-20] MEDS: SERTRALINE 100 MG TABLET PO SCH (09:57)
[2019-09-20] MEDS: LISINOPRIL 20 MG TABLET PO SCH (09:57)
[2019-09-20] MEDS: DEXAMETHASONE 4 MG TABLET PO SCH (09:58)
[2019-09-20] MEDS: MAGNESIUM OXIDE 400 MG TABLET PO SCH (10:06)
[2019-09-20 12:16] VITALS: BP 110/71
== END 2019-09-20 14:31 | disposition hospice, home (50) | DRG 641 ==
LOC: EDBD → EDUNIT# → N.ED 13:58 → SUATTDRO 19:18 → N.EDINP 19:18 → N.4E 21:19
PROVIDERS: ADMIT Internal Medicine; ATTEND Internal Medicine